=== PATIENT | female | born 1995 | race African-American/Black ===

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

== ENCOUNTER 2020-04-05 18:33 | Emergency (ER) | payer OTHER ==
[2020-04-05] MEDS ORDERED: KETOROLAC TROMETHAMINE 30 MG/1 ML VIAL IM ONE (18:41)
[2020-04-05] MEDS ORDERED: diazePAM 2 MG TABLET PO ONE (18:41)
--- NOTE | 2020-04-05 18:41 | PDOC ---
Rapid Medical Evaluation Time Seen by Provider: 04/05/20 18:39 Medical Evaluation: Allergies Allergy/AdvReac Type Severity Reaction Status Date / Time No Known Allergies Allergy Verified 07/03/16 17:45 04/05/20 18:40 24 year old female with pmhx of asthma and scoliosis complaining of back spasms x 2 days. Took naproxen with minimal relief PE: TTP to thoracic paravertebrals Plan Toradol and valium Pt to precede to ED for further eval
[2020-04-05 18:46] VITALS: BP 141/88; PULSE 92; TEMP 98.9; BMI 23.6
--- OUTSIDE RECORDS SUMMARY | 2020-04-05 18:55 | XMS ---
:1995 Author Organization [facility] Support Name Relationship Address Phone BEENA Unavailable Unavailable Unavailable LOUISE SMITH MOTHER [address] [facility] [address] [place] [address] Re-disclosure Warning The records that you are about to access may contain information from federally- assisted alcohol or drug abuse programs. If such information is present, then the following federally mandated warning applies: This information has been disclosed to you from records protected by federal confidentiality rules (42 CFR part 2). The federal rules prohibit you from making any further disclosure of this information unless further disclosure is expressly permitted by the written consent of the person to whom it pertains or as otherwise permitted by 42 CFR part 2. A general authorization for the release of medical or other information is NOT sufficient for this purpose. The Federal rules restrict any use of the information to criminally investigate or prosecute any alcohol or drug abuse patient.The records that you are about to access may contain highly sensitive health information, the redisclosure of which is protected by Article 27-F of the [facility] Public Health law. If you continue you may haveaccess to information: Regarding HIV / AIDS; Provided by facilities licensed or operated by the [facility] Office of Mental Health; or Provided by the [facility] Office for People With Developmental Disabilities. If such information is present, then the following [facility] mandated warning applies: This information has been disclosed to you from confidential records which are protected by state law. State law prohibits you from making any further disclosure of this information without the specific written consent of the person to whom it pertains, or as otherwise permitted by law. Any unauthorized further disclosure in violation of state law may result in a fine or intermediate sentence or both. A general authorization for the release of medical or other information is NOT sufficient authorization for further disclosure. Insurance Providers Payer name Policy type / Policy ID Covered Covered democrat's Policy Plan Coverage type democrat ID relationship to [facility] Information [facility] [id number] OUTPT 3
[2020-04-05] MEDS ORDERED: CYCLOBENZAPRINE HCL 10 MG TABLET (FP) PO ONE (18:59)
[2020-04-05] MEDS ORDERED: CYCLOBENZAPRINE HCL 10 MG TABLET (FP) ONE (19:01)
[2020-04-05] MEDS ORDERED: KETOROLAC TROMETHAMINE 30 MG/1 ML VIAL ONE (19:02)
--- NOTE | 2020-04-05 19:02 | PDOC ---
History of Present Illness - General Chief Complaint: Back Pain Stated Complaint: SCOLIOSIS Time Seen by Provider: 04/05/20 18:39 History Source: Patient Exam Limitations: No Limitations - History of Present Illness Initial Comments: 04/05/20 19:04 Patient is a 24-year-old female with a history of scoliosis and asthma who presents to the ED with left-sided low back spasms that started yesterday. She states she felt the pain yesterday when leaving work and states her back was tight and today it got more severe. She took a Tylenol extra strength which did not help. She states this happens every couple years and typically will take Naprosyn for this problem which does help but she ran out of her prescription. She denies any numbness or tingling. She denies any fecal or urinary incontinence or retention. She states she has not taken anything today for her pain. She denies any known allergies. Past History - Medical History Allergies/Adverse Reactions: Allergies Allergy/AdvReac Type Severity Reaction Status Date / Time No Known Allergies Allergy Verified 04/05/20 18:42 Home Medications: Ambulatory Orders No Home Medications 0 dose .ROUTE UTDICT 03/14/13 Cyclobenzaprine HCl [Flexeril 10 mg] 10 mg PO BID PRN #20 tablet 04/05/20 Naproxen [Naprosyn] 500 mg PO BID PRN #30 tablet 04/05/20 Asthma: Yes COPD: No Other medical history: Scoliosis - Reproductive History Is Patient Now?: No - Immunization History Immunization Up to Date: Yes - Psycho-Social/Smoking History Smoking Status: No Smoking History: Never smoked Have you smoked in the past 12 months: No Number of Cigarettes Smoked Daily: 0 - Substance Abuse Hx (Audit-C & DAST Scrn) How often the patient has a drink containing alcohol: Monthly or less Number of drinks the patient has on a typical day: 1 or 2 How often the patient has six or more drinks on one occasion: Never Score: In Men: 4 or > Positive; In Women: 3 or > Positive: 1 Screen Result (Pos requires Nsg. Audit-10AR): Negative In the last yr the pt used illegal drug/Rx for NonMed reason: No Score: Yes response is considered Positive: 0 Screen Result (Positive result requires Nsg. DAST-10): Negative Review of Systems - Review of Systems Comments:: 04/05/20 19:05 - Review of Systems Able to Perform ROS?: Yes Constitutional: No: Fever, Chills, Loss of Appetite, Night Sweats, Weakness HEENTM: No: Eye Pain, Vision changes, Ear Pain, Throat Pain, Throat Swelling, Mouth Pain, Difficulty Swallowing Respiratory: No: Cough, Shortness of Breath, Wheezing, Sputum Production Cardiac (ROS): No: Chest Pain, Chest Tightness, Palpitations, Irregular Heart Beat, Edema ABD/GI: No: Nausea, Vomiting, Abdominal Pain, Diarrhea : No Dysuria, No Hematuria, No Frequency, No Urgency Musculoskeletal: No: Muscle Pain, Joint Pain, Muscle Weakness, Neck Pain; positive: Left lumbar back pain/spasm Integumentary: No: Lesions, Rash Neurological: No: Headache, Numbness, Tingling, Weakness, Speech Difficulties *Physical Exam - Vital Signs Last Vital Signs Temp Pulse Resp BP Pulse Ox 98.9 F 92 H 18 141/88 100 04/05/20 18:42 04/05/20 18:42 04/05/20 18:42 04/05/20 18:42 04/05/20 18:42 - Physical Exam 04/05/20 19:05 - Physical Exam General Appearance: Nourished, Appropriately Dressed, No Distress HEENT: EOMI, Normal Voice, Hearing Grossly Normal Neck: Supple, No Lymphadenopathy (R), No Lymphadenopathy (L), No Rigidity, No Decreased range of motion Respiratory/Chest: Lungs Clear, Normal Breath Sounds. No Respiratory Distress, No Accessory Muscle Use Cardiovascular: Regular Rhythm, Regular Rate, S1, S2 Musculoskeletal: Normal Inspection. No Decreased Range of Motion; walking with an antalgic gait. Tenderness to palpation over the left lumbar spine. No midline back tenderness to palpation. Strength 5/5 bilateral lower extremities. EHL intact bilaterally. Extremity: Normal Capillary Refill, Normal Inspection Integumentary: Normal Color, Dry. No Rash Neurologic: underwriting clerk II-XII NML intact, Fully Oriented, Alert, Normal Mood/Affect, Normal Response Medical Decision Making - Medical Decision Making 04/05/20 19:06 Assessment: Patient is a 24-year-old female with left lumbar back spasms that st arted yesterday. Plan: -Toradol IM ordered -Flexeril p.o. ordered -Prescription for Flexeril and Naprosyn sent to the patient's pharmacy -She has been advised to alternate ice and heat to help with pain and swelling. She should follow-up with her primary doctor within 1 to 2 days for repeat evaluation. She understands and agrees with this treatment plan and she is stable for discharge. Discharge - Discharge Information Problems reviewed: Yes Clinical Impression/Diagnosis: Back muscle spasm Condition: Stable Disposition: HOME - Additional Discharge Information Prescriptions: Cyclobenzaprine HCl [Flexeril 10 mg] 10 mg PO BID PRN #20 tablet PRN Reason: Muscle Spasms Naproxen [Naprosyn] 500 mg PO BID PRN #30 tablet PRN Reason: Pain - Follow up/Referral - Patient Discharge Instructions Patient Printed Discharge Instructions: DI for Back Spasm Additional Instructions: Alternate ice and heat to help with the back spasm. Take the Flexeril as prescribed but only as needed for muscle spasm. Take the Naprosyn as needed for pain. Be sure to take the Naprosyn with food. Get plenty of rest and drink plenty of fluids. You should do gentle stretching as this will help keep your muscles loose. Follow-up with your primary doctor within 1 to 2 days for repeat evaluation. - Post Discharge Activity Work/Back to School Note: Back to Work
== END 2020-04-05 19:07 | disposition home or self-care (01) ==
LOC: JERFT 18:33
PROC: 3E0233Z Introduction of Anti-inflammatory into Muscle, Percutaneous Approach (ICD-10-PCS; principal; 2020-04-05)
DX: M62.830 Muscle spasm of back (principal)
CPT/HCPCS: 99284-25